=== PATIENT | male | born 1950 | race Caucasian/White ===

== ENCOUNTER 2017-01-24 10:00 | Inpatient (IN) ==
[2017-01-24 13:11] LABS: Basophils # (Auto) 0 K/mcL (0.0-0.3); Basophils % (Auto) 0.6 % (0.0-2.0); Eosinophils # (Auto) 0.1 K/mcL (0.0-0.7); Eosinophils % (Auto) 2.2 % (0.0-7.0); Granulocytes % (Auto) 65.9 % (38.0-78.0); Lymphocytes # (Auto) 1.7 K/mcL (1.5-4.8); Lymphocytes % (Auto) 24.9 % (15.5-49.0); Mean Cell Volume 88.2 fL (80.0-100.0); Mean Corpuscular HGB Conc 33.7 g/dL (31.0-36.0); Mean Corpuscular Hemoglobin 29.7 pg (26.0-34.0); Monocytes # (Auto) 0.4 K/mcL (0.1-0.9); Monocytes % (Auto) 6.4 % (1.0-12.0); Platelet Count 257 K/mcL (140-440); RBC 5.21 M/mcL (4.50-5.90); Red Cell Distribution Width 13.8 % (11.5-14.5)
[2017-01-24 13:25] LABS: Blood Urea Nitrogen 20 mg/dl (8-23)
[2017-01-24 13:49] LABS: Appearance,Urine CLEAR; Bilirubin,Urine NEG (NEG); Color,Urine YELLOW; Glucose,Urine (UA) NEGATIVE (NEG); Leukocyte Esterase,Urine NEG /uL (NEG); Nitrate,Urine NEG (NEG); Protein,Urine NEG (NEG); Specific Gravity,Urine 1.023 (1.000-1.035); Urine Blood NEG mg/dL (<0.03); Urobilinogen,Urine NEG (NEG)
[2017-01-28] MEDS ORDERED: oxyCODONE 10 MG TAB.ER.12H PO SCH (05:00)
[2017-01-28] MEDS ORDERED: ceFAZolin 1 GM VIAL IV SCH (05:00)
[2017-01-28] MEDS ORDERED: PREGABALIN 75 MG CAPSULE PO SCH (05:00)
[2017-01-28] MEDS ORDERED: CELECOXIB 200 MG CAPSULE PO SCH (05:00)
[2017-01-28] MEDS ORDERED: KETOROLAC 30 MG, ROPIVACAINE HCL/PF 49.5 ML, EPINEPHrine 0.5 MG, 0.9 % SODIUM CHLORIDE ... IJ SCH (06:30)
[2017-01-28] MEDS ORDERED: SCOPOLAMINE 1 PATCH PATCH TOPICAL PRN (10:13)
[2017-01-28] MEDS ORDERED: IPRATROPIUM/ALBUTEROL 3 ML AMPUL.NEB NEB PRN ×2 (10:13→11:38)
[2017-01-28] MEDS ORDERED: KETAMINE 100 MG/ML ML IV ONE (10:15)
[2017-01-28] MEDS ORDERED: MIDAZOLAM 2 MG/2 ML VIAL IV ONE (10:15)
[2017-01-28] MEDS ORDERED: BUPIVACAINE PF 0.5% 30 ML VIAL IJ ONE (10:15)
[2017-01-28] MEDS ORDERED: LIDOCAINE HCL/PF 100 MG/5 ML SYRINGE IV ONE (10:15)
[2017-01-28] MEDS ORDERED: PHENYLEPHRINE 10 MG/ML VIAL IV ONE (10:15)
[2017-01-28] MEDS ORDERED: PROPOFOL 200 MG/20 ML VIAL IV ONE (10:15)
[2017-01-28] MEDS ORDERED: TRANEXAMIC ACID 1,000 MG/10 ML VIAL IV ONE (10:15)
[2017-01-28] MEDS ORDERED: ONDANSETRON 4 MG/2 ML VIAL IV ONE (10:15)
[2017-01-28] MEDS ORDERED: GLYCOPYRROLATE 0.2 MG/ML VIAL IV ONE (10:15)
[2017-01-28] MEDS ORDERED: ePHEDrine 50 MG/ML AMPUL IV ONE (10:15)
[2017-01-28] MEDS ORDERED: DEXAMETHASONE 10 MG/ML VIAL IV ONE (10:15)
[2017-01-28] MEDS ORDERED: GENTAMICIN SULFATE 800 MG/20 ML VIAL IR ONE (10:29)
[2017-01-28] MEDS ORDERED: FLUMAZENIL 0.1 MG/ML ML IV PRN (11:38)
[2017-01-28] MEDS ORDERED: LACTATED RINGERS 250 ML IV PRN (11:38)
[2017-01-28] MEDS ORDERED: MEPERIDINE 25 MG/ML SYRINGE IV PRN (11:38)
[2017-01-28] MEDS ORDERED: ONDANSETRON 4 MG/2 ML VIAL IV PRN ×2 (11:38→12:14)
[2017-01-28] MEDS ORDERED: PROMETHAZINE 25 MG/ML VIAL IV PRN (11:38)
[2017-01-28] MEDS ORDERED: ACETAMINOPHEN 1,000 MG/100 ML BOTTLE IV ONE (11:38)
[2017-01-28] MEDS ORDERED: fentaNYL 100 MCG/2 ML VIAL IV PRN (11:38)
[2017-01-28] MEDS ORDERED: NALOXONE HCL 0.4 MG/ML VIAL IV PRN (11:38)
[2017-01-28] MEDS ORDERED: LACTATED RINGERS 1,000 ML IV SCH (11:45)
--- NOTE | 2017-01-28 12:11 | Brief Operative Note ---
Date of procedure: 01/28/17 Pre-op diagnosis: left knee oa Post-op diagnosis: same Procedure: left total knee arthroplasty Grafts/Implants: Yes Anesthesia: spinal Complications: none Surgeon: Alfred Prince Trial Justice: Gely Hong Estimated blood loss (cc): 150 Tourniquet Time (Minutes): 83 Specimens Removed/Pathology: none sent Condition: stable Disposition: PACU
[2017-01-28] MEDS ORDERED: FLEETS ADULT ENEMA PR PRN (12:14)
[2017-01-28] MEDS ORDERED: DEXTROSE 50% 50 ML VIAL IV PRN (12:14)
[2017-01-28] MEDS ORDERED: METHOCARBAMOL 750 MG TABLET PO PRN (12:14)
[2017-01-28] MEDS ORDERED: DEXTROSE 31 GM ORAL.SUSP PO PRN (12:14)
[2017-01-28] MEDS ORDERED: POLYETHYLENE GLYCOL 3350 17 GM PACKET PO PRN (12:14)
[2017-01-28] MEDS ORDERED: BENZOCAINE/MENTHOL 1 LOZENGE PO PRN (12:14)
[2017-01-28] MEDS ORDERED: HYDROmorphone 2 MG/ML SYRINGE IV PRN (12:14)
[2017-01-28] MEDS ORDERED: BISACODYL 10 MG SUPP.RECT PR PRN (12:14)
[2017-01-28] MEDS ORDERED: TRANEXAMIC ACID 1,000 MG/10 ML VIAL IV SCH (12:14)
[2017-01-28] MEDS ORDERED: MAGNESIUM HYDROXIDE 30 ML ORAL.SUSP PO PRN (12:14)
--- NOTE | 2017-01-28 12:55 | XRay Report ---
CLINICAL INFORMATION: Post-Op Total Knee COMPARISON: None. FINDINGS: Total knee prostheses is anatomically aligned. No osseous abnormality. Periarticular gas is actually seen as expected IMPRESSION: Negative Interpreted and Authenticated by: Alfred Lo 01/28/17
[2017-01-28] MEDS: 0.9 % SODIUM CHLORIDE 1,000 ML IV SCH ×2 (13:27→21:24)
[2017-01-28] MEDS: 0.9 % SODIUM CHLORIDE 10 ML SYRINGE IV SCH ×2 (14:11→21:25)
[2017-01-28] MEDS: KETOROLAC 15 MG/ML VIAL IV SCH (17:46)
[2017-01-28] MEDS: INSULIN LISPRO 1 UNIT/0.01 ML UNIT SQ SCH ×2 (17:46→21:24)
[2017-01-28] MEDS: ceFAZolin 1 GM VIAL IV SCH (17:47)
[2017-01-28] MEDS ORDERED: SENNOSIDES 1 TABLET PO SCH (21:00)
[2017-01-28] MEDS: ASPIRIN 325 MG ENTERIC COATED TABLET PO SCH (21:23)
[2017-01-28] MEDS: DOCUSATE SODIUM 100 MG CAPSULE PO SCH (21:23)
[2017-01-28] MEDS: HYDROcodone/APAP 10/325MG TABLET PO PRN (21:32)
[2017-01-29] MEDS: KETOROLAC 15 MG/ML VIAL IV SCH ×2 (00:47→04:59)
[2017-01-29] MEDS: ceFAZolin 1 GM VIAL IV SCH (00:50)
[2017-01-29] MEDS: 0.9 % SODIUM CHLORIDE 1,000 ML IV SCH (04:57)
[2017-01-29] MEDS: HYDROcodone/APAP 10/325MG TABLET PO PRN (04:58)
[2017-01-29] MEDS: 0.9 % SODIUM CHLORIDE 10 ML SYRINGE IV SCH (04:58)
[2017-01-29] MEDS: INSULIN LISPRO 1 UNIT/0.01 ML UNIT SQ SCH (07:17)
[2017-01-29] MEDS ORDERED: metFORMIN 500 MG TAB.XL.24H PO SCH (08:00)
--- NOTE | 2017-01-29 08:16 | Orthopedic Progress Note ---
Subjective Patient information: Note initiated : 01/29/17 at 8:13 am Service Date, if different from initiated Date: [] Patient: Glen Arechiga 66 y/o M admitted on 01/28/17 for Left Total Knee Arthroplasty. Chief Complaint: [] Interval history: doing great, pain under control Objective Vital signs: Vital Signs Temp Pulse Resp BP BP Pulse Ox 01/29/17 07:13 98.7 F 16 142/79 94 01/29/17 04:31 98.3 F 82 16 133/78 95 01/29/17 00:38 98.1 F 94 H 16 124/74 96 01/28/17 20:00 98.7 F 105 H 16 124/79 94 01/28/17 16:00 109/77 95 01/28/17 15:00 123/76 90 01/28/17 14:30 129/79 93 01/28/17 14:00 118/78 94 01/28/17 13:45 113/75 90 01/28/17 13:30 118/82 93 01/28/17 13:15 96.1 F L 16 134/75 93 01/28/17 13:08 97.2 F 89 12 140/71 91 01/28/17 12:57 97.6 F 90 14 128/61 95 01/28/17 12:52 97.1 F 92 H 16 127/73 93 01/28/17 12:47 97.0 F 94 H 20 120/70 95 01/28/17 12:42 97.3 F 82 16 125/70 95 01/28/17 12:37 98.6 F 81 16 127/71 97 01/28/17 12:32 98.6 F 81 20 124/70 97 01/28/17 12:27 98.6 F 90 10 L 137/67 94 Intake and Output 01/28/17 01/29/17 01/29/17 21:59 05:59 13:59 Intake Total 1160 / 1160 350 / 350 360 / 360 Output Total 250 / 250 410 / 410 225 / 225 Balance 910 / 910 -60 / -60 135 / 135 Intake: Oral 1160 / 1160 350 / 350 360 / 360 Output: Void Amount 250 / 250 410 / 410 225 / 225 Other: Meal Dinner Percent of Meal Consumed 100% Feeding Ability Independent Weight 287 lb 8 oz Intake & Output: Intake & Output 01/28/17 01/29/17 01/29/17 21:59 05:59 13:59 Intake Total 1160 / 1160 350 / 350 360 / 360 Output Total 250 / 250 410 / 410 225 / 225 Balance 910 / 910 -60 / -60 135 / 135 Weight 287 lb 8 oz Intake: Oral 1160 / 1160 350 / 350 360 / 360 Output: Void Amount 250 / 250 410 / 410 225 / 225 Other: Meal Dinner Percent of Meal Consumed 100% Feeding Ability Independent Incision: Yes healing Incision clean and dry: Yes Dressing: Yes clean, Yes dry, Yes intact Weight bearing status: full Neurological exam IM: Yes abnormal gait, Yes alert, Yes oriented X3, Yes motor sensory intact, Yes neurovascular intact Extremities exam IM: No calf tenderness, Yes Foot pink and warm, Yes neurovascular intact - Labs CBC & BMP: 01/29/17 04:53 01/24/17 10:51 Labs: Orthopedic Labs 01/24/17 10:51 PT 13.3 INR 1.0 01/29/17 01/24/17 04:53 10:51 Hgb 12.8 L 15.5 Hct 37.6 L 46.0 Assessment and Plan (1) Knee osteoarthritis assessment: pod 1 s/p tka plan: pain control dvt prophylaxis d/c planning pt Status: Acute
--- NOTE | 2017-01-29 08:17 | Discharge Summary ---
Ortho Discharge - TKA - Patient Instructions Diet: Regular Diet Activity: ambulate with assistive device, weight bearing as tolerated Total Knee Protocol: For Total Knee: Start ROM ROLANDO with stationary bike or rocking chair. Work on gaining full extension of knee. Posterior dislocation precautions provided. Hip abductor strengthening and gait training instructions provided. Apply Cryocuff as instructed. Dressing Care: May shower in 2 days, Aquacel Ag - leave on for 5 days - Problem Maintenance (1) Knee osteoarthritis Status: Acute - Follow Up Plan Follow Up Appointments: Alfred Prince MD [Physician] - 02/09/17 11:30 am Disposition: Home, Self-Care Prognosis: Good Rehab Potential: Good I certify that the patient requires SNF services: No Overall status at discharge: patient is progressing back to baseline
[2017-01-29] MEDS: DOCUSATE SODIUM 100 MG CAPSULE PO SCH (08:22)
[2017-01-29] MEDS: ASPIRIN 325 MG ENTERIC COATED TABLET PO SCH (08:22)
[2017-01-29] MEDS ORDERED: HYDROCHLOROTHIAZIDE 12.5 MG CAPSULE PO SCH (09:00)
[2017-01-29] MEDS ORDERED: LOSARTAN 25 MG TABLET PO SCH (09:00)
[2017-01-29] MEDS ORDERED: PNEUMOCOCCAL 23-VAL P-SAC VAC 0.5 ML VIAL IM ONE (10:00)
--- NOTE | 2017-02-01 08:26 | Operative Note ---
DATE OF OPERATION: 01/28/2017 PREOPERATIVE DIAGNOSIS: Degenerative joint disease, left knee. POSTOPERATIVE DIAGNOSIS: Degenerative joint disease, left knee. PROCEDURE: Left total knee arthroplasty. SURGEON: Judy Prince M.D. HEARING AID ASSEMBLY SUPERVISOR SURGEON: Gely Hong PA-C ANESTHESIA: Spinal with LMA assist. ESTIMATED BLOOD LOSS: 150 mL COMPLICATIONS: None noted. SPECIMENS REMOVED: None. DRAINS: None. TOURNIQUET TIME: 83 minutes at 300 mmHg. IMPLANTS: DePuy CMW2 bone cement 20 grams x3 with Kristina Palacos cement non-antibiotic, DePuy Attune tibial based fixed bearing size 7 cemented, DePuy Attune patella medialized dome 41 mm cemented AOX, DePuy Attune femoral posterior stabilized size 8 left cemented, DePuy Attune tibial insert fixed bearing posterior stabilized size 8, 6 mm AOX. INDICATIONS: The patient has had a long-standing history of worsening pain in the knee that has failed conservative treatment. Radiographs have confirmed advanced degenerative joint disease. After a long discussion about treatment options, the patient elected to proceed with a knee arthroplasty. The risks and benefits were discussed with the patient in detail including, but not limited to, the risks of anesthesia, problems with the heart or lungs related to anesthesia, infection, compromise or injury to the nerves and blood vessels, deep venous thrombosis, pulmonary embolism, pneumonia, continued pain after surgery, worsening pain or symptoms after surgery, swelling, loss of motion, instability, leg length discrepancy, and need for repeat surgery. DESCRIPTION OF PROCEDURE: The patient was seen in the pre-anesthesia waiting room where all questions were answered and the correct side and site were identified and marked. The patient was transferred to the operating room and administered the anesthetic and given pre-operative antibiotics. A time-out was then called. The extremity was prepped and draped, exsanguinated, and the tourniquet was inflated to 300 mmHg. A midline skin incision was then made with a standard medial parapatellar arthrotomy. Debridement of the menisci, ACL, and PCL was performed followed by balancing releases in the medial lateral plane. We then established intramedullary access to both the femur and tibia in a standard fashion. The femoral guide dian was initially placed with the distal femoral guide, pinned into place, and the distal femoral cut was performed and checked with a flat plate. We then turned our attention to the tibia. The intramedullary guide was placed with the proximal tibial cutting block. The block was appropriately positioned off the affected side, varus and valgus was checked with the extra-medullary guide, and the block was pinned into place. The proximal tibial cut was performed and the tibia was prepared for the tibial implant with appropriate rotation. The tibia, femur, and posterior compartment were debrided of osteophytes, loose bodies, and meniscal fragments We then used the gap balancing technique to balance extension with the first two cuts and good balancing was obtained with a 10 millimeter gap block. We turned our attention back to the femur and used the referencing block and implant to size appropriately. Using the gap balancing technique for the flexion space we set our rotation of the femur off the tibial cut. Anesthesia gave the patient 1 gram of Tranexamic Acid via an intravenous route. We placed the 4 in 1 cutting block and made anterior, posterior, and chamfer cuts. Box plasty cuts were then made in a standard fashion for the posterior stabilized prosthesis. We then completed osteophyte release and posterior capsule release from the posterior compartment. Trials were placed and we chose the polyethylene insert thickness that provided the best stability in all planes. With the trials in place, we did a measured resection for a resurfacing patella. We sized the patella and placed the patella trial and performed a lateral facetectomy with the saw and rongeur. Good tracking was obtained. We removed all trials, irrigated and dried all cut surfaces. We cemented the components into place including tibia, femur and patella. We placed a trial liner and held the knee in full extension with the patella compressed while the cement cured. We then removed all excess cement and placed the final polyethylene tibiofemoral component. Irrigation with 3 liters of antibiotic saline was then performed using jet-lavage. We let the tourniquet down and coagulated bleeding vessels. We injected a 100 cubic centimeter volume including Ropivacaine 49.25 cubic centimeters at 5 milligrams per cubic centimeter, Ketorolac 30 milligrams, and Epinephrine 0.5 milligrams into 100 cubic centimeters volume of normal saline. We closed the retinaculum with #2 Stratafix. We closed the subcutaneous tissue and skin in layers out to kelly in the skin. A sterile pressure dressing was applied. All needle and sponge counts were correct. The patient was transferred to the recovery room in stable condition. [id number] Job ID: [id number] Doc ID: [id number] Judy Prince MD
== END 2017-01-29 11:05 | disposition home or self-care (01) | DRG 470 ==
LOC: MEDSUR 01-28 07:32
PROVIDERS: ADMIT Orthopaedic Surgery Sports Medicine; ATTEND Orthopaedic Surgery Sports Medicine

== ENCOUNTER 2017-07-26 04:56 | Inpatient (IN) ==
[2017-07-14 11:58] LABS: Appearance,Urine CLEAR; Bilirubin,Urine NEG (NEG); Color,Urine YELLOW; Glucose,Urine (UA) NEGATIVE (NEG); Leukocyte Esterase,Urine NEG /uL (NEG); Protein,Urine NEG (NEG); Specific Gravity,Urine 1.018 (1.000-1.035); Urine Blood NEG mg/dL (<0.03); Urobilinogen,Urine NEG (NEG)
[2017-07-14 13:47] LABS: Basophils # (Auto) 0 K/mcL (0.0-0.3); Basophils % (Auto) 0.6 % (0.0-2.0); Blood Urea Nitrogen 17 mg/dl (8-23); Eosinophils # (Auto) 0.1 K/mcL (0.0-0.7); Eosinophils % (Auto) 1.8 % (0.0-7.0); Granulocytes % (Auto) 65.3 % (38.0-78.0); Lymphocytes # (Auto) 1.7 K/mcL (1.5-4.8); Lymphocytes % (Auto) 25.3 % (15.5-49.0); Mean Cell Volume 85.9 fL (80.0-100.0); Mean Corpuscular HGB Conc 33.5 g/dL (31.0-36.0); Mean Corpuscular Hemoglobin 28.8 pg (26.0-34.0); Monocytes # (Auto) 0.5 K/mcL (0.1-0.9); Platelet Count 247 K/mcL (140-440); RBC 5.08 M/mcL (4.50-5.90); Red Cell Distribution Width 14.4 % (11.5-14.5)
[2017-07-26] MEDS ORDERED: oxyCODONE 10 MG TAB.ER.12H PO SCH (07:00)
[2017-07-26] MEDS ORDERED: ceFAZolin 1 GM VIAL IV SCH (07:00)
[2017-07-26] MEDS ORDERED: CELECOXIB 200 MG CAPSULE PO SCH (07:00)
[2017-07-26] MEDS ORDERED: PREGABALIN 75 MG CAPSULE PO SCH (07:00)
[2017-07-26] MEDS ORDERED: KETOROLAC 30 MG, ROPIVACAINE HCL/PF 49.5 ML, EPINEPHrine 0.5 MG, 0.9 % SODIUM CHLORIDE ... IV SCH (07:00)
[2017-07-26] MEDS ORDERED: GENTAMICIN SULFATE 800 MG/20 ML VIAL IR ONE (07:02)
[2017-07-26] MEDS ORDERED: ePHEDrine 50 MG/ML AMPUL IV ONE (07:30)
[2017-07-26] MEDS ORDERED: MIDAZOLAM 2 MG/2 ML VIAL IV ONE (07:30)
[2017-07-26] MEDS ORDERED: TRANEXAMIC ACID 1,000 MG/10 ML VIAL IV ONE ×2 (07:30→09:13)
[2017-07-26] MEDS ORDERED: GLYCOPYRROLATE 0.2 MG/ML VIAL IV ONE (07:30)
[2017-07-26] MEDS ORDERED: ROPIVACAINE HCL/PF 20 ML VIAL IJ ONE (07:30)
[2017-07-26] MEDS ORDERED: PHENYLEPHRINE 10 MG/ML VIAL IV ONE (07:30)
[2017-07-26] MEDS ORDERED: PROPOFOL 200 MG/20 ML VIAL IV ONE (07:30)
[2017-07-26] MEDS ORDERED: DEXAMETHASONE 10 MG/ML VIAL IV ONE (07:30)
[2017-07-26] MEDS ORDERED: LIDOCAINE HCL/PF 100 MG/5 ML SYRINGE IV ONE (07:30)
[2017-07-26] MEDS ORDERED: ONDANSETRON 4 MG/2 ML VIAL IV ONE (07:30)
--- NOTE | 2017-07-26 09:12 | Brief Operative Note ---
Date of procedure: 07/26/17 Pre-op diagnosis: right knee osteoarthritis Post-op diagnosis: same Procedure: right total knee arthroplasty Grafts/Implants: Yes Anesthesia: spinal Complications: none Surgeon: Alfred Prince Manager Distribution: Gely Hong Estimated blood loss (cc): 150 Tourniquet Time (Minutes): 70 Specimens Removed/Pathology: none sent Condition: stable Disposition: PACU
[2017-07-26] MEDS ORDERED: POLYETHYLENE GLYCOL 3350 17 GM PACKET PO PRN (09:13)
[2017-07-26] MEDS ORDERED: DEXTROSE 50% 50 ML VIAL IV PRN (09:13)
[2017-07-26] MEDS ORDERED: FLEETS ADULT ENEMA PR PRN (09:13)
[2017-07-26] MEDS ORDERED: BENZOCAINE/MENTHOL 1 LOZENGE PO PRN ×2 (09:13→09:15)
[2017-07-26] MEDS ORDERED: MAGNESIUM HYDROXIDE 30 ML ORAL.SUSP PO PRN (09:13)
[2017-07-26] MEDS ORDERED: ONDANSETRON 4 MG/2 ML VIAL IV PRN ×2 (09:13→09:15)
[2017-07-26] MEDS ORDERED: METHOCARBAMOL 750 MG TABLET PO PRN (09:13)
[2017-07-26] MEDS ORDERED: BISACODYL 10 MG SUPP.RECT PR PRN (09:13)
[2017-07-26] MEDS ORDERED: ONDANSETRON ODT 4 MG TABLET SL PRN (09:13)
[2017-07-26] MEDS ORDERED: DEXTROSE 31 GM ORAL.SUSP PO PRN (09:13)
[2017-07-26] MEDS ORDERED: IPRATROPIUM/ALBUTEROL 3 ML AMPUL.NEB NEB PRN (09:15)
[2017-07-26] MEDS ORDERED: PROMETHAZINE 25 MG/ML VIAL IV PRN (09:15)
[2017-07-26] MEDS ORDERED: MEPERIDINE 25 MG/ML SYRINGE IV PRN (09:15)
[2017-07-26] MEDS ORDERED: NALOXONE HCL 0.4 MG/ML VIAL IV PRN (09:15)
[2017-07-26] MEDS ORDERED: diphenhydrAMINE 50 MG/ML VIAL IV PRN (09:15)
[2017-07-26] MEDS ORDERED: FLUMAZENIL 0.1 MG/ML ML IV PRN (09:15)
[2017-07-26] MEDS ORDERED: fentaNYL 100 MCG/2 ML VIAL IV PRN (09:15)
[2017-07-26] MEDS ORDERED: ACETAMINOPHEN 1,000 MG/100 ML BOTTLE IV ONE (09:15)
[2017-07-26] MEDS ORDERED: LACTATED RINGERS 1,000 ML IV SCH (09:15)
[2017-07-26] MEDS ORDERED: LACTATED RINGERS 250 ML IV PRN (09:15)
--- NOTE | 2017-07-26 09:51 | Operative Note ---
DATE OF OPERATION: 07/26/2017 PREOPERATIVE DIAGNOSIS: Degenerative joint disease, right knee. POSTOPERATIVE DIAGNOSIS: Degenerative joint disease, right knee. PROCEDURE: Right total knee arthroplasty. SURGEON: Judy Prince M.D. POUNCING LATHE OPERATOR SURGEON: Gely Hong PA-C ANESTHESIA: Spinal with LMA assist. ESTIMATED BLOOD LOSS: 150 mL COMPLICATIONS: None noted. SPECIMENS REMOVED: None. DRAINS: None. TOURNIQUET TIME: 70 minutes. IMPLANTS: DePuy CMW2 gentamycin bone cement 20 grams x4, DePuy Attune knee tibial based fixed bearing size 7 cemented, DePuy Attune patella medialized dome 41 mm cemented AOX, DePuy Attune femoral posterior stabilized size 8 right cemented, DePuy Attune tibial insert fixed bearing posterior stabilized size 8, 8 mm AOX. INDICATIONS: The patient has had a long-standing history of worsening pain in the knee that has failed conservative treatment. Radiographs have confirmed advanced degenerative joint disease. After a long discussion about treatment options, the patient elected to proceed with a knee arthroplasty. The risks and benefits were discussed with the patient in detail including, but not limited to, the risks of anesthesia, problems with the heart or lungs related to anesthesia, infection, compromise or injury to the nerves and blood vessels, deep venous thrombosis, pulmonary embolism, pneumonia, continued pain after surgery, worsening pain or symptoms after surgery, swelling, loss of motion, instability, leg length discrepancy, and need for repeat surgery. DESCRIPTION OF PROCEDURE: The patient was seen in the pre-anesthesia waiting room where all questions were answered and the correct side and site were identified and marked. The patient was transferred to the operating room and administered the anesthetic and given pre-operative antibiotics. A time-out was then called. The extremity was prepped and draped, exsanguinated, and the tourniquet was inflated to 300 mmHg. A midline skin incision was then made with a standard medial parapatellar arthrotomy. Debridement of the menisci, ACL, and PCL was performed followed by balancing releases in the medial lateral plane. We then established intramedullary access to both the femur and tibia in a standard fashion. The femoral guide dian was initially placed with the distal femoral guide, pinned into place, and the distal femoral cut was performed and checked with a flat plate. We then turned our attention to the tibia. The intramedullary guide was placed with the proximal tibial cutting block. The block was appropriately positioned off the affected side, varus and valgus was checked with the extra-medullary guide, and the block was pinned into place. The proximal tibial cut was performed and the tibia was prepared for the tibial implant with appropriate rotation. The tibia, femur, and posterior compartment were debrided of osteophytes, loose bodies, and meniscal fragments We then used the gap balancing technique to balance extension with the first two cuts and good balancing was obtained with a 10 millimeter gap block. We turned our attention back to the femur and used the referencing block and implant to size appropriately. Using the gap balancing technique for the flexion space we set our rotation of the femur off the tibial cut. Anesthesia gave the patient 1 gram of Tranexamic Acid via an intravenous route. We placed the 4 in 1 cutting block and made anterior, posterior, and chamfer cuts. Box plasty cuts were then made in a standard fashion for the posterior stabilized prosthesis. We then completed osteophyte release and posterior capsule release from the posterior compartment. Trials were placed and we chose the polyethylene insert thickness that provided the best stability in all planes. With the trials in place, we did a measured resection for a resurfacing patella. We sized the patella and placed the patella trial and performed a lateral facetectomy with the saw and rongeur. Good tracking was obtained. We removed all trials, irrigated and dried all cut surfaces. We cemented the components into place including tibia, femur and patella. We placed a trial liner and held the knee in full extension with the patella compressed while the cement cured. We then removed all excess cement and placed the final polyethylene tibiofemoral component. Irrigation with 3 liters of antibiotic saline was then performed using jet-lavage. We let the tourniquet down and coagulated bleeding vessels. We injected a 100 cubic centimeter volume including Ropivacaine 49.25 cubic centimeters at 5 milligrams per cubic centimeter, Ketorolac 30 milligrams, and Epinephrine 0.5 milligrams into 100 cubic centimeters volume of normal saline. We closed the retinaculum with #2 Stratafix and 0 Vicryl. We closed the subcutaneous tissue and skin in layers out to Dermabond on the skin. A sterile pressure dressing was applied. All needle and sponge counts were correct. The patient was transferred to the recovery room in stable condition. JJ:marcy Job ID: [id number] Doc ID: [id number] Judy Prince MD
--- NOTE | 2017-07-26 09:54 | XRay Report ---
CLINICAL INFORMATION: Reason for Exam:Post-Op Total Knee COMPARISON: None. FINDINGS: Total knee prostheses is anatomically aligned. No osseous abnormality. Soft tissue swelling seen as expected IMPRESSION: Negative Interpreted and Authenticated by: Alfred Lo 07/26/17
[2017-07-26] MEDS: 0.9 % SODIUM CHLORIDE 1,000 ML IV SCH ×3 (11:52→19:45)
[2017-07-26] MEDS: INSULIN LISPRO 1 UNIT/0.01 ML UNIT SQ SCH ×3 (12:45→21:42)
[2017-07-26] MEDS: KETOROLAC 15 MG/ML VIAL IV SCH ×3 (13:05→23:35)
[2017-07-26] MEDS: 0.9 % SODIUM CHLORIDE 10 ML SYRINGE IV SCH ×2 (14:06→21:45)
[2017-07-26] MEDS: ceFAZolin 1 GM VIAL IV SCH ×2 (15:22→23:35)
[2017-07-26] MEDS ORDERED: SENNOSIDES 1 TABLET PO SCH (21:00)
[2017-07-26] MEDS: DOCUSATE SODIUM 100 MG CAPSULE PO SCH (21:42)
[2017-07-26] MEDS: ASPIRIN 325 MG ENTERIC COATED TABLET PO SCH (21:42)
[2017-07-27] MEDS: HYDROcodone/APAP 10/325MG TABLET PO PRN ×2 (01:28→05:49)
[2017-07-27] MEDS: 0.9 % SODIUM CHLORIDE 1,000 ML IV SCH (01:29)
[2017-07-27] MEDS: KETOROLAC 15 MG/ML VIAL IV SCH (05:45)
[2017-07-27] MEDS: 0.9 % SODIUM CHLORIDE 10 ML SYRINGE IV SCH (05:45)
--- NOTE | 2017-07-27 07:11 | Discharge Summary ---
Ortho Discharge - TKA - Patient Instructions Diet: Regular Diet Activity: activity as tolerated, weight bearing as tolerated Total Knee Protocol: For Total Knee: Start ROM ROLANDO with stationary bike or rocking chair. Work on gaining full extension of knee. Posterior dislocation precautions provided. Hip abductor strengthening and gait training instructions provided. Apply Cryocuff as instructed. Dressing Care: May shower in 2 days, Other (Dermabond- leave in place for 2 weeks until post op appt. Remove gauze, shower, dry and replace gauze) - Follow Up Plan Follow Up Appointments: Alfred Prince MD [Physician] - 08/08/17 10:10 am Disposition: Home, Self-Care Prognosis: Good Rehab Potential: Good I certify that the patient requires SNF services: No Overall status at discharge: patient is progressing back to baseline - Orders For Discharge Prescriptions: Aspirin [Ecotrin] 325 mg PO BID #60 tab.ec Docusate Sodium [Colace] 100 mg PO BID PRN #30 cap PRN Reason: Constipation HYDROcodone/APAP 10/325MG [[place] 10-325Mg] 1 - 2 tab PO Q4HP PRN #60 tab PRN Reason: Pain Level 3-6 Additional Discharge Orders: Physical Therapy at Discharge - TKA Location: Determined By Patient Walker Location: Determined By Patient
--- NOTE | 2017-07-27 07:15 | Orthopedic Progress Note ---
Subjective Patient information: Note initiated : 07/27/17 at 7:13 am Service Date, if different from initiated Date: [] Patient: Glen Arechiga 66 y/o M admitted on 07/26/17 for Right Total Knee Arthroplasty. Chief Complaint: [POD #1 s/p right TKA Doing very well. Reports very minimal pain. Ambulating and urinating okay. No chest pain, numbness, tingling, calf pain. No questions or concerns] Objective Vital signs: Vital Signs Temp Pulse Resp BP Pulse Ox 07/27/17 04:00 97.6 F 80 18 95/61 94 07/27/17 00:00 98.1 F 91 H 17 122/71 93 07/26/17 20:00 98.2 F 105 H 18 116/68 92 07/26/17 14:05 102 H 97/60 92 07/26/17 13:35 99 H 99/63 91 07/26/17 13:05 97 H 101/85 92 07/26/17 12:35 98 H 102/85 93 07/26/17 12:03 97 H 106/63 92 07/26/17 11:49 97 H 118/70 92 07/26/17 11:33 90 123/71 94 07/26/17 11:17 88 121/76 96 07/26/17 11:03 91 H 120/73 92 07/26/17 10:47 86 117/67 94 07/26/17 10:12 97.5 F 82 15 118/59 95 07/26/17 10:00 85 15 101/55 96 07/26/17 09:45 88 14 112/74 97 07/26/17 09:40 90 15 101/58 97 07/26/17 09:30 97.2 F 99 H 19 101/58 98 Intake and Output 07/26/17 07/27/17 07/27/17 21:59 05:59 13:59 Intake Total 2133 / 2133 350 / 350 Output Total 600 / 600 350 / 350 Balance 1533 / 1533 0 / 0 Intake: IV 983 / 983 Sodium Chloride 0.9% 1,000 ml @ 983 / 983 125 mls/hr IV .Q8H [facility] Rx#: [id number] Oral 1150 / 1150 350 / 350 Output: Void Amount 600 / 600 350 / 350 Other: Meal Dinner Percent of Meal Consumed 100% Feeding Ability Independent Weight 292 lb Intake & Output: Intake & Output 07/26/17 07/27/17 07/27/17 21:59 05:59 13:59 Intake Total 2133 / 2133 350 / 350 Output Total 600 / 600 350 / 350 Balance 1533 / 1533 0 / 0 Weight 292 lb Intake: IV 983 / 983 Sodium Chloride 0.9% 1,000 ml @ 983 / 983 125 mls/hr IV .Q8H [facility] Rx#: [id number] Oral 1150 / 1150 350 / 350 Output: Void Amount 600 / 600 350 / 350 Other: Meal Dinner Percent of Meal Consumed 100% Feeding Ability Independent Incision: Yes healing, No draining, No red, No swollen, No inflamed, Yes clean and dry Incision clean and dry: Yes Dressing: Yes clean, Yes dry, Yes intact Weight bearing status: as tolerated Range of motion: Full b/l ankles/feet. 5 deg ext-60 deg flexion Neurological exam IM: Yes alert, Yes oriented X3, Yes motor sensory intact, Yes neurovascular intact Extremities exam IM: No calf tenderness, Yes normal capillary refill, Yes normal inspection, No Mary's sign, Yes Foot pink and warm, Yes neurovascular intact - Periperhal Pulses Peripheral pulses: 2+: dorsalis pedis (L), dorsalis pedis (R), posterior tibialis (L), posterior tibialis (R) - Diagnostic Results Knee x-ray: image reviewed - Labs CBC & BMP: 07/14/17 10:37 07/14/17 10:37 Labs: Orthopedic Labs 07/14/17 10:37 PT 13.6 INR 1.0 07/27/17 07/14/17 06:16 10:37 Hgb Pending 14.6 Hct Pending 43.6 Assessment and Plan (1) Knee osteoarthritis POD #1 s/p right TKA: -d/c to home today -Dermabond protocol: keep covered with gauze at all times besides showering -pain control -ASA 325mg BID x 4 weeks for DVT prophylaxis -PT outpatient -f/u in office 10-14 days Status: Acute
[2017-07-27] MEDS: INSULIN LISPRO 1 UNIT/0.01 ML UNIT SQ SCH (07:17)
[2017-07-27] MEDS ORDERED: metFORMIN 500 MG TAB.XL.24H PO SCH (08:00)
[2017-07-27] MEDS: DOCUSATE SODIUM 100 MG CAPSULE PO SCH (08:47)
[2017-07-27] MEDS: ASPIRIN 325 MG ENTERIC COATED TABLET PO SCH (08:52)
[2017-07-27] MEDS ORDERED: LOSARTAN 25 MG TABLET PO SCH (09:00)
[2017-07-27] MEDS ORDERED: HYDROCHLOROTHIAZIDE 12.5 MG CAPSULE PO SCH (09:00)
== END 2017-07-27 10:33 | disposition home or self-care (01) | DRG 470 ==
LOC: MEDSUR 04:56
PROVIDERS: ADMIT Orthopaedic Surgery Sports Medicine; ATTEND Orthopaedic Surgery Sports Medicine